=== PATIENT | female | born 1970 | race Caucasian/White ===

== ENCOUNTER 2017-03-26 10:55 | Emergency (ER) | payer BC ==
[2017-03-26 12:08] VITALS: BP 151/78
--- NOTE | 2017-03-26 12:23 | UC ---
Throat Pain/Nasal Nikita HPI - HPI Summary HPI Summary: ONE WEEK OF NAUSEA, DIARRHEA. HAD 89F FEVER FIVE DAYS AGO, LAST TWO DAYS HAD SINUS PRESSURE AND PAIN R>L. HISTORY OF LAPROSCOPIC HISTORECTOMY AND HERNIA IN . - History of Current Complaint Chief Complaint: UCGeneralIllness Stated Complaint: SINUS HEADACHE Time Seen by Provider: 03/26/17 11:25 Hx Obtained From: Patient Hx Last Menstrual Period: 09/16/13 Onset/Duration: Gradual Onset, Lasting Days, Still Present Severity: Mild Cough: None Associated Signs & Symptoms: Positive: Sinus Discomfort, Fever - Epiglottits Risk Factors Epiglottis Risk Factors: Negative - Allergies/Home Medications Allergies/Adverse Reactions: Allergies Allergy/AdvReac Type Severity Reaction Status Date / Time Erythromycin Allergy Unknown Unknown Verified 03/26/17 11:22 Reaction Details Penicillins Allergy Unknown Unknown Verified 03/26/17 11:22 Reaction Details Home Medications: Home Medications Fexofenadine-Pseudoephedrine [Dara-D 24 Hour Allergy 180-240 mg] 1 tab BEDTIME 03/26/17 [History Confirmed 03/26/17] PMH/Surg Hx/FS Hx/Imm Hx Previously Healthy: Yes - Surgical History Surgical History: Yes Surgery Procedure, Year, and Place: C-SECT X 3. T&A. 02/24/17 Hysterectomy. Hernia repair - Family History Known Family History: Negative: Respiratory Disease - Social History Occupation: Employed Full-time Lives: With Family Alcohol Use: Occasionally Substance Use Type: None Smoking Status (MU): Never Smoked Tobacco - Immunization History Most Recent Influenza Vaccination: CAN NOT GET D/T PAST RXN Review of Systems Constitutional: Fever Skin: Negative Eyes: Negative ENT: Sinus Congestion, Sinus Pain/Tenderness Respiratory: Negative Cardiovascular: Negative Gastrointestinal: Negative Genitourinary: Negative Motor: Negative Neurovascular: Negative Musculoskeletal: Negative Neurological: Other - INTERMITTENT LIGHT HEADEDNESS Psychological: Negative Is Patient Immunocompromised?: No All Other Systems Reviewed And Are Negative: Yes Physical Exam Triage Information Reviewed: Yes Appearance: Well-Appearing, No Pain Distress, Well-Nourished Vital Signs: Initial Vital Signs Temp 98.7 F 03/26/17 11:23 Pulse 86 03/26/17 11:23 Resp 16 03/26/17 11:23 BP 151/78 03/26/17 11:23 Pulse Ox 99 03/26/17 11:23 Vital Signs Reviewed: Yes Eye Exam: Normal ENT: Positive: Hearing grossly normal, TM bulging, TM dull Dental Exam: Normal Neck exam: Normal Neck: Positive: Supple, Nontender, No Lymphadenopathy. Negative: Nuchal Rigidity, Tenderness @ Respiratory Exam: Normal Respiratory: Positive: Chest non-tender, Lungs clear, Normal breath sounds, No respiratory distress, No accessory muscle use Cardiovascular Exam: Normal Cardiovascular: Positive: RRR, No Murmur, Pulses Normal Abdominal Exam: Normal Abdomen Description: Positive: Nontender, No Organomegaly, Soft, Other: - NO TENDERNESS, CREPITATIONS OR ERYTHEMA AT SURGICAL SITE Bowel Sounds: Positive: Present Musculoskeletal Exam: Normal Musculoskeletal: Positive: Strength Intact, ROM Intact Neurological Exam: Normal Psychological Exam: Normal Psychological: Positive: Normal Response To Family Skin Exam: Normal Throat Pain/Nasal Course/Dx - Differential Dx/Diagnosis Differential Diagnosis/HQI/PQRI: Otitis Media, Sinusitis, URI Provider Diagnoses: SINUSITIS Discharge - Discharge Plan Condition: Stable Disposition: HOME Prescriptions: DOXYcycline CAP(*) [DOXYcycline 100MG CAP(*)] 100 mg PO BID #20 cap Meclizine TAB* [Antivert 12.5 TAB*] 25 mg PO TID PRN #12 tab PRN Reason: Dizziness Patient Education Materials: Sinusitis (ED) Referrals: Maddi Salas MD [Primary Care Provider] - Additional Instructions: PLEASE SEEK EVALUATION WITH PRIMARY CARE FOR FOLLOW UP WITH PRESENT CONCERNS AND TO ADDRESS ELEVATED BLOOD PRESSURE TODAY (151/78). RETURN TO EMERGENCY DEPARTMENT FOR EVALUATION IF YOU DEVELOP SEVERE HEADACHES, FEVER, ABDOMINAL PAIN, IF SYMPTOMS WORSEN, OR IF NEW SYMPTOMS DEVELOP
== END 2017-03-26 12:35 | disposition home or self-care (01) ==
LOC: UCCORT 10:55
DX: J32.9 Chronic sinusitis, unspecified (principal); R50.9 Fever, unspecified; H81.49 Vertigo of central origin, unspecified ear; Z90.710 Acquired absence of both cervix and uterus; Z88.1 Allergy status to other antibiotic agents; Z88.0 Allergy status to penicillin
CPT/HCPCS: 93005; 99212; G0463

== ENCOUNTER 2018-09-08 19:55 | Emergency (ER) | payer BC ==
[2018-09-08 20:33] VITALS: BP 129/76
--- NOTE | 2018-09-08 21:08 | UC ---
Eye Complaint HPI - HPI Summary HPI Summary: L upper eye lid swelling, redness. She is unsure what caused this. does use eye make up, but no new changes to eye products. Denies vision changes. nothing makes it better/worse. - History of Current Complaint Chief Complaint: Carlos Stated Complaint: LEFT EYE COMPLAINT Time Seen by Provider: 09/08/18 21:01 Hx Obtained From: Patient Hx Last Menstrual Period: 09/16/13 Onset/Duration: Sudden Onset Severity Currently: Mild Pain Intensity: 0 - Allergies/Home Medications Allergies/Adverse Reactions: Allergies Allergy/AdvReac Type Severity Reaction Status Date / Time erythromycin base Allergy Unknown Verified 09/08/18 20:25 Reaction Details Penicillins Allergy Unknown Verified 09/08/18 20:25 Reaction Details Home Medications: Home Medications Cetirizine* [ZyrTEC 10 MG TAB*] 10 mg PO DAILY 09/08/18 [History Confirmed 09/08] Escitalopram * [Lexapro *] 10 mg PO DAILY 09/08/18 [History Confirmed 09/08/18] busPIRone TAB* [Buspar TAB *] 7.5 mg PO SEE INSTRUCTIONS 09/08/18 [History Confirmed 09/08/18] PMH/Surg Hx/FS Hx/Imm Hx Previously Healthy: Yes - Surgical History Surgical History: Yes Surgery Procedure, Year, and Place: C-SECT X 3. T&A. hysterectomy. hernia repair - Family History Known Family History: Negative: Respiratory Disease - Social History Alcohol Use: Occasionally Substance Use Type: None Smoking Status (MU): Never Smoked Tobacco - Immunization History Most Recent Influenza Vaccination: CAN NOT GET D/T PAST RXN Review of Systems All Other Systems Reviewed And Are Negative: Yes Constitutional: Positive: Negative Skin: Negative: Rash Eyes: Positive: Other - L eye lid swelling, redness. denies pain.. Negative: Blurred Vision, Drainage ENT: Negative: Sore Throat Physical Exam Triage Information Reviewed: Yes Appearance: Well-Appearing Vital Signs: Initial Vital Signs Temp 99.5 F 09/08/18 20:27 Pulse 71 09/08/18 20:27 Resp 15 09/08/18 20:27 BP 129/76 09/08/18 20:27 Pulse Ox 99 09/08/18 20:27 Vital Signs Reviewed: Yes Eyes: Positive: Conjunctiva Clear, Other: - PERRLA. L upper lid has a small patch of soft, erythematous minimally swollen area that is non tender and no induration noted. no open areas. lashes are not affected. Eye Complaint Course/Dx - Course Course Of Treatment: L eye upper eye lid inflammation noted. Not thought to be infectious but gave bacitracin to cover area. This is early presentation, acute and may develop more symptoms for which I told her to return to be re-evaluated. Not affecting vision - Differential Dx/Diagnosis Differential Diagnosis/HQI/PQRI: Conjunctivitis, Periorbital Cellulitis, Other Provider Diagnosis: Dermatitis Discharge - Sign-Out/Discharge Documenting (check all that apply): Patient Departure All imaging exams completed and their final reports reviewed: No Studies - Discharge Plan Condition: Good Disposition: HOME Patient Education Materials: Contact Dermatitis (ED) Referrals: Edwina Germain PA [Primary Care Provider] - Additional Instructions: if worsening please follow up with pcp - Billing Disposition and Condition Condition: GOOD Disposition: Home - Attestation Statements Provider Attestation: I was available for consult. This patient was seen by the IRASEMA. The patient was not presented to, seen by, or examined by me. EK
== END 2018-09-08 21:17 | disposition home or self-care (01) ==
LOC: UCCORT 19:55
DX: L30.9 Dermatitis, unspecified (principal); Z88.1 Allergy status to other antibiotic agents; Z88.0 Allergy status to penicillin
CPT/HCPCS: 99212; G0463